=== PATIENT | female | born 1970 | race Caucasian/White ===

== ENCOUNTER → 2017-01-05 | Outpatient (CLI) | payer OTHER ==
[~2017-01-05] MED LIST: DEXT10TA PO; LEVO100T5 PO; LIOT25TA3 PO; LIOT5TAB3 PO; TRIA1TAB3 PO
[2017-01-05 09:14] LABS: ASPARTATE AMINO TRANSFERASE 17 U/L (15-37); BLOOD UREA NITROGEN 17 mg/dL (7-18)
== END | disposition home or self-care (01) ==
LOC: STAR 07:42 → MERGE 08:00
PROVIDERS: ATTEND Obstetrics & Gynecology
DX: Z01.818 Encounter for other preprocedural examination (principal); N92.0 Excessive and frequent menstruation with regular cycle
CPT/HCPCS: 36415; 80053; 81003; 84703; 85025

== ENCOUNTER 2017-01-19 06:50 | Day surgery (SDC) | payer OTHER ==
[2017-01-05 08:33] VITALS: BP 136/89
[~2017-01-19] VITALS: Ht 165.1 cm; Wt 117.0 kg
[~2017-01-19 06:50] MED LIST changes: +BUPIVACAINE/PF 0.25% ONE; +SILVER NITRATE STICK TP ONE
[2017-01-19] MEDS ORDERED: MIDAZOLAM 1 MG/ML, 2ML ONE ×2 (08:02→08:03)
[2017-01-19] MEDS ORDERED: FENTANYL PF 250 MCG/5ML ONE (08:02)
[2017-01-19] MEDS ORDERED: LACTATED RINGERS 1,000 ML IV SCH (08:08)
[2017-01-19] MEDS ORDERED: LIDOCAINE 1%, 2ML SQ PRN (08:30)
[2017-01-19 08:44] LABS: HCG UR OBC PASS
[2017-01-19] MEDS ORDERED: MEPERIDINE/PF 25MG/0.5ML IVPush PRN (09:00)
[2017-01-19] MEDS ORDERED: OXYcodone 5 MG/5 ML ORAL.SOL UDC PO PRN (09:00)
[2017-01-19] MEDS ORDERED: HYDROmorphone 1 MG/ML, 1ML IV PRN (09:00)
[2017-01-19] MEDS ORDERED: hydrALAzine 20 MG/ML, 1ML IV PRN (09:00)
[2017-01-19] MEDS ORDERED: ONDANSETRON 2MG/ML, 2ML IVPush PRN (09:00)
[2017-01-19] MEDS ORDERED: LABETALOL 5MG/ML, 20ML IV PRN (09:00)
[2017-01-19] MEDS ORDERED: METOCLOPRAMIDE 5 MG/ML, 2ML IV PRN (09:00)
[2017-01-19] MEDS ORDERED: PROMETHAZINE 25 MG/ML, 1ML IV PRN (09:00)
[2017-01-19] MEDS ORDERED: ONDANSETRON 2MG/ML, 2ML ONE (09:10)
[2017-01-19] MEDS ORDERED: KETOROLAC 30 MG/1 ML ONE (09:10)
[2017-01-19] MEDS ORDERED: DEXAMETHASONE 4 MG/ML, 1ML ONE (09:10)
[2017-01-19] MEDS ORDERED: PROPOFOL 10 MG/ML, 20ML ONE (09:10)
[2017-01-19] MEDS ORDERED: MEPERIDINE/PF 25MG/0.5ML ONE (10:25)
[2017-01-19] MEDS ORDERED: OXYcodone 5 MG/5 ML ORAL.SOL UDC ONE (10:40)
[2017-01-19] MEDS ORDERED: FENTANYL PF 100 MCG/2ML ONE (10:50)
[2017-01-19] MEDS: FENTANYL PF 100 MCG/2ML IV PRN ×2 (10:51→11:12)
[2017-01-19] MEDS ORDERED: HYDROmorphone 1 MG/ML, 1ML ONE (11:36)
== END 2017-01-19 13:31 | disposition home or self-care (01) ==
LOC: OUT 06:50 → MERGE 09:00 → OUT 13:31
PROVIDERS: ATTEND Obstetrics & Gynecology
DX: N92.0 Excessive and frequent menstruation with regular cycle (principal); Z88.2 Allergy status to sulfonamides; I10 Essential (primary) hypertension; E66.01 Morbid (severe) obesity due to excess calories; Z68.41 Body mass index [BMI] 40.0-44.9, adult; Z98.51 Tubal ligation status; Z90.49 Acquired absence of other specified parts of digestive tract; Z98.890 Other specified postprocedural states; Z91.048 Other nonmedicinal substance allergy status; Z82.61 Family history of arthritis; Z80.3 Family history of malignant neoplasm of breast; Z82.49 Family history of ischemic heart disease and other diseases of the circulatory system
CPT/HCPCS: 58563; 81025; J1100; J1170; J1885; J2175; J2250; J2405; J2704; J3010; J3490; J7120

== ENCOUNTER → 2020-06-26 | Outpatient (CLI) | payer OTHER ==
[~2020-06-26] MED LIST changes: -BUPIVACAINE/PF 0.25% ONE; +LIOT25TA12 PO; -LIOT25TA3 PO; +LIOT5TAB11 PO; -LIOT5TAB3 PO; -SILVER NITRATE STICK TP ONE
== END | disposition home or self-care (01) ==
LOC: RAD 08:44
PROVIDERS: ATTEND Nurse Practitioner
DX: M47.812 Spondylosis without myelopathy or radiculopathy, cervical region (principal); M48.02 Spinal stenosis, cervical region; M25.78 Osteophyte, vertebrae; G95.29 Other cord compression
CPT/HCPCS: 72050; 72141